=== PATIENT | female | born 1945 | race Two or more races ===

== ENCOUNTER 2024-01-17 12:28 | Emergency (ER) | payer OTHER, MEDICAID ==
[~2024-01-17] VITALS: Ht 165.1 cm; Wt 106.5 kg
[2024-01-17 15:14] LABS: Basophils # (auto) 0 10 ^3/uL (0-0.2); Basophils % (auto) 0.2 % (0.0-2.0); Eosinophils # (auto) 0 10 ^3/uL (0-0.8); Eosinophils % (auto) 0.1 % (0.0-7.0); Hematocrit 36.5 % (36.0-46.0); Hemoglobin 11.6 g/dL (12.2-16.2); Lymphocytes % (auto) 8.6 % (10.0-50.0); Mean Corpuscular Hemoglobin 28.6 pg (28.0-32.0); Mean Corpuscular Hgb Conc. 31.7 g/dL (32.0-36.0); Mean Corpuscular Volume 90.1 fL (80.0-100.0); Monocytes # (auto) 0.1 10 ^3/uL (0-1.3); Monocytes % (auto) 1.2 % (0.0-12.0); Neutrophils # (auto) 10.1 10 ^3/uL (1.6-8.6); Neutrophils % (auto) 89.9 % (37.0-80.0); Red Blood Cells 4.05 10^6/uL (4.0-5.20); Red Cell Distribution Width 14.7 % (11.8-14.3); White Blood Cell 11.2 10^3/uL (4.4-10.8)
[2024-01-17 15:15] LABS: Chloride 103 mmol/L (98-107); Potassium 4.9 mmol/L (3.5-5.1); Sodium 138 mmol/L (136-145)
[2024-01-17 15:16] LABS: Anion Gap 8 (5-15); Carbon Dioxide 27 mmol/L (20-30)
[2024-01-17 15:21] LABS: BUN/Creatinine Ratio 24.1 (10.0-20.0); Blood Urea Nitrogen 20 mg/dL (9-23); Glucose 319 mg/dL (74-106)
[2024-01-17 15:54] LABS: Urine Bacteria None Seen /hpf (None Seen)
[2024-01-17 16:09] LABS: Urine Blood Negative /uL (Negative); Urine Clarity Clear (Clear); Urine Color Yellow (Yellow); Urine Protein, UAD Negative (Negative); Urine Specific Gravity 1.022 (1.001-1.035); Urine Urobilinogen Normal (Negative); Urine WBC 1 /hpf (0 - 5)
[2024-01-17 16:16] VITALS: BP 144/79; PULSE 96; RESP 18; TEMP 98.5; O2SAT 94
== END 2024-01-17 17:43 | disposition home or self-care (01) ==
LOC: ER 12:28
DX: M79.605 Pain in left leg (principal); M79.604 Pain in right leg; E11.65 Type 2 diabetes mellitus with hyperglycemia; I10 Essential (primary) hypertension; E78.5 Hyperlipidemia, unspecified; Z90.89 Acquired absence of other organs
CPT/HCPCS: 36415; 80048; 81001; 85025; 93970